=== PATIENT | female | born 1940 | race Caucasian/White ===

== ENCOUNTER 2023-12-15 15:57 | Emergency (ER) | payer MEDICARE, SELFPAY ==
[2023-12-15 16:06] VITALS: BP 168/91; PULSE 86; RESP 18; TEMP 36.7; O2SAT 96; BMI 19.0
--- NOTE | 2023-12-15 16:20 | XR_ITS ---
Patient: YRIS HOOVER Facility:?[facility] RIS Patient ID:?[id number] Site Patient ID:?[id number]. Site :?[id number] Study:?XRay-Chest LEFT RIBS-12/15/2023 4:33:02 PM Ordering Physician:?DR. ENGLE Final Report: INDICATION: .FALL 2 DAYS AGO. RIB PAIN. SOB TECHNIQUE: Chest and left ribs 3 views. COMPARISON: August 2013. FINDINGS: Lungs: Normal lung volume. No consolidation. The tracheobronchial tree and hilar structures are unremarkable. Pleura: No pleural effusion or pneumothorax. Heart and Mediastinum: Normal heart size. Atherosclerotic aorta. Bones: Acute nondisplaced fracture the lateral anterior left 10th rib.. IMPRESSION: Acute nondisplaced fracture the lateral anterior left 10th rib. Dictated by Xu Vasques MD @ 12/15/2023 5:30:51 PM Signed by:?Xu Vasques MD @12/15/2023 5:30:51 PM (Electronic Signature)
--- NOTE | 2023-12-15 16:21 | ED_ITS ---
HPI - Fall General Chief Complaint: Fall/Minor Trauma Stated Complaint: fall on mon, rib pain, shortness of breath Time Seen by Provider: 12/15/23 15:58 History of Present Illness HPI Narrative: This patient comes in reporting severe pain in her left lateral ribs because of a fall that occurred a couple days ago. She states that she was in [place] and was pulling a suitcase. She said there was snow and she did not recognize that there was a curb and she tripped over it. She landed on her left ribs and now over the past couple days has developed severe pain with any kind of movement and when taking deep breaths and when palpating in this area. She arrives here with normal vital signs and does not appear to be short of breath. Related Data Previous Rx's Medication Instructions Recorded hydrocodone 5 mg-acetaminophen 325 1 tab PO Q4-6H PRN pain #24 tabs 12/15/23 mg tablet ketorolac 10 mg tablet 10 mg PO Q8H 5 days #15 tabs 12/15/23 Allergies Allergy/AdvReac Type Severity Reaction Status Date / Time cephalexin Allergy Mild Anaphylaxis Verified 12/15/23 16:13 penicillin V Allergy Mild Verified 12/15/23 16:13 gabapentin AdvReac Severe Verified 12/15/23 16:13 [id number] Reductase AdvReac Severe Verified 12/15/23 16:13 Inhibitor Review of Systems Status of ROS: Reports: 10 or more systems reviewed and unremarkable except as noted in History and below Narrative: Constitutional: No fevers, no weight gain or loss. Eyes: No discharge. No vision changes. HENT: No congestion, no sore throat, no ear pain. Cardiovascular: No chest pain, no palpitations. Respiratory: No shortness of breath, no wheezes, no cough. Pain is reproduced with deeper breathing. Gastrointestinal: No abdominal pain, no vomiting, no diarrhea. Genitourinary: No dysuria, no hematuria. Musculoskeletal: Normal range of motion. Skin: No rashes, no pruritis. Neurological: No dizziness, weakness, sensory change, speech change. Endo/Heme/Allergies: No bruising or bleeding. No polydipsia. Pysch: no suicidality, no anxiety, no insomnia. All other systems reviewed and are negative. 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 ?Z90.710 - Acquired absence of both cervix and uterus (ICD-10) ?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 - Acquired absence of ovaries, bilateral (ICD-10) ?Z90.79 - Acquired absence of other genital organ(s) (ICD-10) History of cholecystectomy ?Z90.49 - Acquired absence of other specified parts of digestive tract (ICD- 10) Social History Smoking Status: Never smoker Do you use any of these nicotine containing products: None How often do you have a drink containing alcohol: never How often do you have six or more drinks on one occasion: Never AUDIT-C Alcohol total score: 0 Non-prescribed substance use: denies use service: No Exam Narrative: Exam Narrative: Constitutional: Well-developed, well-nourished, no acute distress. HEENT: Normocephalic, atraumatic. Neck: Normal range of motion. Nontender. Supple. Heart: Regular. No murmurs. Normal rate. Intact distal pulses. Lungs: Clear to auscultation. No wheezes, rhonchi, or rales. Chest wall: No external sign of injury. Distinct tenderness in the left lateral ribs along the mid axillary line in the inferior aspect of the ribs. Abdomen: Normal bowel sounds. Nontender. No rebound tenderness. No particular tenderness when palpating over the spleen under the left anterior ribs. Genitalia: Deferred. Back: No midline tenderness. Normal range of motion. Extremities: Normal range of motion. No injury. Skin: Intact. No rash. Warm. No erythema or pallor. Neurologic: No altered sensation. No weakness. Alert and oriented. Psychiatric: No suicidality. No anxiety or depression. No insomnia. Nursing notes and vitals signs are reviewed. Const: Vital Signs, click to edit/add: Vital Signs - 24 hr 12/15/23 16:06 Temperature 98.0 F Pulse Rate [Right Pulse Oximeter] 86 Respiratory Rate 18 Blood Pressure [Ri ght Upper Arm] 168/91 H Pulse Oximetry 96 Oxygen Delivery Me thod Room Air Course Vital Signs Vital signs: Initial Vital Signs Temperature 98.0 F 12/15/23 16:06 Temperature Source Temporal Artery Scan 12/15/23 16:06 Pulse Rate 86 12/15/23 16:06 Pulse Rhythm Regular 12/15/23 16:06 Pulse Strength 3+ Normal 12/15/23 16:06 Respiratory Rate 18 12/15/23 16:06 Blood Pressure 168/91 H 12/15/23 16:06 Blood Pressure Mean 116 H 12/15/23 16:06 Blood Pressure Position Sitting 12/15/23 16:06 Pulse Oximetry 96 12/15/23 16:06 Oxygen Delivery Method Room Air 12/15/23 16:06 Vital Signs Temperature 98.0 F 12/15/23 16:06 Pulse Rate 86 12/15/23 16:06 Respiratory Rate 18 12/15/23 16:06 Blood Pressure 168/91 H 12/15/23 16:06 Pulse Oximetry 96 12/15/23 16:06 Oxygen Delivery Method Room Air 12/15/23 16:06 Temperature 98.0 F 12/15/23 16:06 Pulse Rate 86 12/15/23 16:06 Respiratory Rate 18 12/15/23 16:06 Blood Pressure 168/91 H 12/15/23 16:06 Pulse Oximetry 96 12/15/23 16:06 Oxygen Delivery Method Room Air 12/15/23 16:06 MDM - Fall MDM Narrative Medical decision making narrative: This patient fell a couple days ago and injured her left lateral ribs. X-ray imaging does show a fracture of the 10th rib on the left side. Her lung vance appear normal. The patient does not have any other injury. She does not have any tenderness in her abdomen to suggest an intra-abdominal injury related to this fall. She is okay to be discharged home and did received prescriptions for Toradol and [place]. Imaging Data Chest x-ray: Radiologist's impression: Acute nondisplaced fracture of the lateral anterior left 10th rib. Discharge Plan Discharge Clinical Impression: Fracture of rib Patient Disposition: Home, Self-Care Condition: Stable Additional Instructions: Take medication as needed and indicated. Activity as tolerated. Follow up with MD return if worsening. Prescriptions: New hydrocodone-acetaminophen 5-325 mg tablet 1 tab PO Q4-6H PRN (Reason: pain) Qty: 24 0RF ketorolac 10 mg tablet 10 mg PO Q8H 5 Days Qty: 15 0RF Follow Up/Referrals: Betito Casas MD [Primary Care Provider] - Stand Alone Forms: [employer] Info Instructions
== END 2023-12-15 18:16 | disposition home or self-care (01) ==
PROVIDERS: Emergency Provider Emergency Medicine Emergency Medical Services; PCP Family Medicine
DX: S22.32XA Fracture of one rib, left side, initial encounter for closed fracture (principal); W19.XXXA Unspecified fall, initial encounter
CPT/HCPCS: 71101; 99283; 99284